=== PATIENT | female | born 1940 | race Caucasian/White ===

== ENCOUNTER 2021-06-12 08:46 | Day surgery (SDC) | payer OTHER, BC ==
[2021-06-12] MEDS ORDERED: diphenhydrAMINE 50 MG/ML VIAL ONE (11:15)
[2021-06-12] MEDS ORDERED: LIDOCAINE 2% 100 MG/5 ML UJET TP ONE (11:16)
[2021-06-12] MEDS ORDERED: MIDAZOLAM 5 MG/5 ML VIAL ONE (11:16)
[2021-06-12] MEDS ORDERED: fentaNYL citrate 0.05 MG/ML VIAL ONE (11:16)
[2021-06-12] MEDS ORDERED: MIDAZOLAM 2 MG/2 ML VIAL IVP ONE (13:20)
[2021-06-12] MEDS ORDERED: fentaNYL citrate 0.05 MG/ML VIAL IVP ONE (13:20)
== END 2021-06-12 12:29 | disposition home or self-care (01) ==
LOC: MDS 08:46 → MMU 09:03 → MDS 12:29
PROVIDERS: ATTEND Internal Medicine Gastroenterology
DX: K52.9 Noninfective gastroenteritis and colitis, unspecified (principal); D12.3 Benign neoplasm of transverse colon; Z86.010 Personal history of colon polyps; R15.2 Fecal urgency; Z87.891 Personal history of nicotine dependence; Z88.0 Allergy status to penicillin; Z79.899 Other long term (current) drug therapy
CPT/HCPCS: 45380; 45385; 88305; J2250; J3010; J1200